=== PATIENT | male | born 1990 | race Hispanic/Latino ===

== ENCOUNTER 2017-04-19 00:53 | Emergency (ER) | payer BC, SELFPAY ==
[2017-04-19] MEDS ORDERED: Tetracaine HCl 0.5% Ophth Soln 2 ML Bottle ONE (01:05)
[2017-04-19] MEDS ORDERED: Fluorescein Opthalmic Strip ONE (01:05)
[2017-04-19] MEDS ORDERED: Tobramycin Sulfate 0.3% Ophth Susp 5 ml Bottle ONE (01:10)
== END 2017-04-19 01:22 | disposition home or self-care (01) ==
LOC: BURERS 00:53
DX: H16.001 Unspecified corneal ulcer, right eye (principal)
CPT/HCPCS: 99283

== ENCOUNTER 2018-09-27 01:36 | Emergency (ER) | payer BC ==
[2018-09-27] MEDS ORDERED: Fluorescein Opthalmic Strip ONE (01:49)
== END 2018-09-27 02:11 | disposition home or self-care (01) ==
LOC: BURERS 01:36
DX: H18.822 Corneal disorder due to contact lens, left eye (principal)
CPT/HCPCS: 99283

== ENCOUNTER 2018-11-01 10:53 | Emergency (ER) | payer BC | END 2018-11-01 11:25 | disposition home or self-care (01) | LOC: BURERS 10:53 | DX: L02.31 Cutaneous abscess of buttock (principal) | CPT/HCPCS: 10061 ==

== ENCOUNTER 2022-01-20 02:16 | Emergency (ER) | payer OTHER ==
[2022-01-20] MEDS ORDERED: Ketorolac Tromethamine 60 MG/2 ML VIAL ONE (02:41)
== END 2022-01-20 02:53 | disposition home or self-care (01) ==
LOC: BURERS 02:16
DX: G44.209 Tension-type headache, unspecified, not intractable (principal); F43.0 Acute stress reaction; E11.9 Type 2 diabetes mellitus without complications
CPT/HCPCS: 96372; 99283; J1885